=== PATIENT | male | born 2000 | race Two or more races ===

== ENCOUNTER 2024-08-24 05:21 | Day surgery (SDC) | payer OTHER ==
[2024-08-11 09:53] LABS: HEMATOCRIT 45.5 % (39.0-48.0); HEMOGLOBIN 15.3 g/dL (13-16.00); MEAN CELL VOLUME 93.3 fL (80.0-100.00); MEAN CORPUSCULAR HEMOGLOBIN 31.4 pg (27.00-32.0); MEAN CORPUSCULAR HGB CONC 33.7 g/dl (32.0-36.0); PLATELET COUNT 333 K/uL (150-450); RED BLOOD COUNT 4.88 M/uL (4.00-6.00); RED CELL DISTRIBUTION WIDTH 13.5 % (11.5-14.5)
[2024-08-11 10:15] LABS: INR 1.1; PARTIAL THROMBOPLASTIN TIME 30.5 SECONDS (22.0-34.0); PROTHROMBIN TIME 11.9 SECONDS (9.0-11.5)
[2024-08-11 10:22] LABS: URINE APPEARANCE Clear; URINE BILIRRUBIN Negative (NEGATIVE); URINE BLOOD Negative; URINE COLOR Yellow; URINE GLUCOSE Negative (NEGATIVE); URINE KETONE Trace (NEGATIVE); URINE LEUKOCYTE Negative; URINE NITRATE Negative; URINE PROTEIN Trace (NEGATIVE)
[2024-08-11 10:28] LABS: URINE BACTERIA 7.5 uL (0.0-1933); URINE EPITHELIAL CELLS 2.7 uL (0.0-38.8); URINE RBC 8.2 uL (0.0-20.8); URINE WBC 5.8 uL (0.0-23.2)
[2024-08-11 10:35] LABS: CALCIUM 9.6 mg/dL (8.5-10.1); CREATININE SERUM 0.99 mg/dL (0.70-1.30); GFR 94.53; POTASSIUM 3.8 mEq/L (3.5-5.1)
[2024-08-11 10:45] LABS: URINE CAST 0.15 uL (0.0-1.40)
[2024-08-24] MEDS ORDERED: CEFAZOLIN SODIUM 1,000 MG VIAL IV SCH (09:15)
[2024-08-24] MEDS ORDERED: OXYMETAZOLINE HCL 15 ML NASAL DROPS NASAL ONE (09:15)
[2024-08-24] MEDS ORDERED: LIDOCAINE HCL 1%/EPINEPHRINE 20ML VIAL IJ ONE (09:15)
[2024-08-24] MEDS ORDERED: DEXAMETHASONE 4 MG TABLET PO ONE (09:15)
[2024-08-24] MEDS ORDERED: MORPHINE SULFATE 4 MG/ML VIAL IV ONE ×2 (10:55→11:25)
[2024-08-24] MEDS ORDERED: EPINEPHRINE HCL/PF 1 MG/ML AMPUL IR ONE (11:00)
== END 2024-08-24 14:15 | disposition home or self-care (01) ==
LOC: CIR.AMB 05:21
PROVIDERS: ATTEND Otolaryngology
DX: C11.0 Malignant neoplasm of superior wall of nasopharynx (principal); J35.2 Hypertrophy of adenoids; J34.3 Hypertrophy of nasal turbinates

== ENCOUNTER 2025-04-25 12:20 | Emergency (ER) | payer OTHER ==
[~2025-04-25] VITALS: Ht 175.3 cm; Wt 106.6 kg
[2025-04-25] MEDS ORDERED: AMOX-CLAV 875-1 EAC1 PO (14:55)
[2025-04-25 15:34] LABS: BASO % 0.3 % (0.1-1.2); EOS # 0.05 (0.04-0.54); EOS % 0.4 % (0.7-7.0); LYMPH # 2.58 (1.18-3.74); LYMPH % 21.6 % (19.3-53.1); MEAN PLATELET VOLUME 8.90 fl (9.4-12.4); MONO # 1.20 (0.24-0.82); MONO % 10.1 % (4.7-12.5); NEUT # 7.96 (1.56-6.13); NEUT % 66.8 % (34.0-71.1); RED CELL DISTRIBUTION WIDTH 12.1 % (11.6-14.4)
[2025-04-25 15:57] LABS: ALT/SGPT 103.0 U/L (12-78); AST/SGOT 51.0 U/L (15-37); BILIRUBIN TOTAL 0.7 mg/dL (0.3-1.2); BUN CREA RATIO 12.0 (7.0-25.0); CREATININE SERUM 1.0 mg/dL (0.70-1.30); GFR 92.6; GLOBULINA 5.1 G/DL (2.4-3.5); GLUCOSE FASTING 101.0 mg/dL (65-100); OSMOLALITY SERUM 277.0 MOSM/KG (275-295)
[2025-04-25 16:18] LABS: COVID-19 AG NEGATIVE (NEGATIVE)
[2025-04-25] MEDS ORDERED: GILTUSS HONEY118 ML PO (16:57)
== END 2025-04-25 17:20 | disposition home or self-care (01) ==
LOC: EMR PED 14:02 → ER 14:02
PROVIDERS: General Practice
DX: B34.9 Viral infection, unspecified (principal); Z20.822 Contact with and (suspected) exposure to COVID-19